=== PATIENT | female | born 1975 | race Caucasian/White ===

== ENCOUNTER 2016-09-07 19:17 | Emergency (ER) | payer OTHER ==
[~2016-09-07] VITALS: Ht 165.1 cm; Wt 82.4 kg
[~2016-09-07 19:17] MED LIST: CYCL5TAB PO; DICL75 PO
[2016-09-07 19:32] VITALS: BP 157/107; PULSE 117; RESP 18; TEMP 97.5; O2SAT 97
[2016-09-07] MEDS ORDERED: IBUP-232 PO (19:39)
[2016-09-07] MEDS ORDERED: HYDR-3533 PO (19:43)
[2016-09-07] MEDS ORDERED: AUGM875T PO (19:43)
[2016-09-07] MEDS ORDERED: ACETAMINOPHEN/HYDROcodone 325 MG/5 MG TAB PO ONE (19:45)
[2016-09-07] MEDS ORDERED: TETANUS/DIPHTHERIA TOXOID ADULT 0.5 ML VIAL IM ONE (19:45)
[2016-09-07] MEDS ORDERED: AMOXICILLIN/CLAVULANATE K 875 MG TAB PO ONE (19:45)
--- NOTE | 2016-09-07 19:45 | PD ---
HPI Chief Complaint: Bite or Sting Time Seen by Provider: 19:34 Travel History International Travel<30 days: No Contact w/Intl Traveler<30days: No Traveled to known affect area: No History of Present Illness HPI 41-year-old female has left arm pain. It is severe and started when she was bit by a pit bull dog. It's constant. The dog is known to the neighborhood and to a neighbor known to the patient. Pain is worse with palpation. Onset sudden. Duration about 1 hour. PFSH Past Medical History Diminished Hearing: No Past Surgical History Section: Yes (x 1) Social History Alcohol Use: No Tobacco Use: No Substance Use: No Allergies-Medications (Allergen,Severity, Reaction): Coded Allergies: No Known Allergies (Unverified , 09/07/16) Reported Meds & Prescriptions Reported Meds & Active Scripts Active Lortab (Hydrocodone-Acetaminophen) 5-325 Mg Tab 1-2 Tab PO Q6H PRN Augmentin (Amoxicillin-Clavulanate) 875-125 mg Tab 875 Mg PO BID 14 Days not for use in CrCl <30 ml/min. Reported Ibuprofen 600 Mg Tab 600 Mg PO Q6H PRN Review of Systems General / Constitutional: No: Fever Musculoskeletal: Positive: Pain Physical Exam Narrative GENERAL: 41-year-old female well-nourished well-developed mild distress SKIN: Focused skin assessment warm/dry. There are two 1 cm puncture wounds along the medial aspect of the distal left humerus. CARDIOVASCULAR: Regular rate and rhythm. No murmur appreciated. RESPIRATORY: No accessory muscle use. Clear to auscultation. Breath sounds equal bilaterally. GASTROINTESTINAL: Abdomen soft, non-tender, nondistended. Hepatic and splenic margins not palpable. MUSCULOSKELETAL: No obvious deformities. No clubbing. No cyanosis. 2+ radial artery pulse bilaterally. NEUROLOGICAL: Awake and alert. No obvious cranial nerve deficits. Motor grossly within normal limits. Normal speech. Radial/median/ulnar sensory distributions intact LUE. PSYCHIATRIC: Appropriate mood and affect; insight and judgment normal. Data Data Last Documented VS Vital Signs Date Time Temp Pulse Resp B/P Pulse Ox O2 Delivery O2 Flow Rate FiO2 09/07/16 19:32 97.5 117 18 157/107 97 VS reviewed Orders Acetamin-Hydrocod 325-5 Mg ([place] 5-325 (09/07/16 19:45) Tetanus/Diphtheria Tox Adult (Tetanus/Di (09/07/16 19:45) Amoxicil-Clavulanate (Augmentin) (09/07/16 19:45) MDM Medical Decision Making Medical Screen Exam Complete: Yes Emergency Medical Condition: Yes Differential Diagnosis laceration, puncture, rabies exposure, cellulitis Narrative Course Wound irrigated. Tetanus. Augmentin here and script. Lortab here and script. The patient agrees to follow-up with animal control and to quarantine the dog. Should she be unable to do so she will return to the ER immediately for initiation of rabies prophylaxis. Diagnosis Primary Impression: Dog bite of arm Qualified Code: S41.152A - Dog bite of arm, left, initial encounter Referrals: [facility] 1 day [phone] Additional Instructions: You have a choice when it comes to health care, and we are glad that you chose [facility]. Hopefully, we have met your expectations on today's visit. You are welcome to return to [facility] at any time, as we are committed to meeting the health care needs of our community. BE CERTAIN THE DOG IS QUARANTINED BY [facility]. IF THIS CANNOT BE DONE RETURN TO THE ER FOR RABIES PROPHYLAXIS INJECTIONS. Med/Other Pt SpecificInfo: Prescription(s) given Scripts Hydrocodone-Acetaminophen (Lortab)5-325 Mg Tab1-2 Tab PO Q6H PRN (PAIN SCALE 6 TO 10) #12 TAB Ref 0 Prov:Roger Rose MD 09/07/16 Amoxicillin-Clavulanate (Augmentin)875-125 mg Xsq912 Mg PO BID 14 Days Ref 0 not for use in CrCl <30 ml/min. Prov:Roger Rose MD 09/07/16 Disposition: 01 DISCHARGE HOME Condition: Stable Roger Rose MD September 07, 2016 19:45
[2016-09-07 20:02] VITALS: BP 149/87
== END 2016-09-07 20:08 | disposition home or self-care (01) ==
LOC: PHED 19:17
DX: S41.152A Open bite of left upper arm, initial encounter (principal); M79.602 Pain in left arm; Z23 Encounter for immunization; W54.0XXA Bitten by dog, initial encounter; Y93.9 Activity, unspecified; Y92.9 Unspecified place or not applicable; Y99.8 Other external cause status
CPT/HCPCS: 90471; 90714